=== PATIENT | male | born 1955 | race Two or more races ===

== ENCOUNTER 2017-03-07 02:17 | Inpatient (IN) | payer MEDICAID, OTHER ==
[~2017-03-07] VITALS: Ht 172.7 cm; Wt 77.6 kg
[2017-03-07 03:53] LABS: Basophils # (auto) 0 uL; Basophils % (auto) 0.5 % (0.0-2.0); Eosinophils # (auto) 0.2 uL; Eosinophils % (auto) 4.6 % (0.0-7.0); Hematocrit 39.7 % (41.0-53.0); Hemoglobin 13.4 g/dL (13.5-17.5); Lymphocytes # (auto) 1.4 uL; Lymphocytes % (auto) 28.1 % (10.0-50.0); Mean Corpuscular Hemoglobin 30.4 pg (28.0-32.0); Mean Corpuscular Hgb Conc. 33.6 g/dL (32.0-36.0); Mean Corpuscular Volume 90.5 fL (80.0-100.0); Mean Platelet Volume 7.9 fL (7.4-10.4); Monocytes # (auto) 0.4 uL; Monocytes % (auto) 8.6 % (0.0-12.0); Neutrophils % (auto) 58.2 % (37.0-80.0); Platelet Count (auto) 229 10^3/uL (140-450); Red Cell Distribution Width 13.8 % (11.6-16.0); White Blood Cell 5.1 10^3/uL (4.4-10.8)
[2017-03-07] MEDS ORDERED: MORPHINE SULFATE 4 MG/ML SYRG IV ONE (04:00)
[2017-03-07] MEDS ORDERED: ONDANSETRON HCL 4 MG/2 ML VIAL IV ONE (04:00)
[2017-03-07 04:15] LABS: Albumin 3.3 g/dL (3.4-5.0); Anion Gap 9 (5-15); Aspartate Aminotransferase 10 U/L (15-37); BUN/Creatinine Ratio 17.1; Blood Urea Nitrogen 40 mg/dL (7-18); Calcium 7.9 mg/dL (8.5-10.1); Carbon Dioxide 24 mmol/L (21-32); Chloride 110 mmol/L (98-107); GFR African American 37 mL/min; GFR Non-African American 30 mL/min; Glucose 95 mg/dL (74-106); Potassium 3.8 mmol/L (3.5-5.1); Sodium 143 mmol/L (136-145)
[2017-03-07 04:19] LABS: Alkaline Phosphatase 64 U/L (45-117); Bilirubin, Total 0.5 mg/dL (0.2-1.0); Total Protein 6.4 g/dL (6.4-8.2)
[2017-03-07 06:09] LABS: Temperature: 22.5 C (20.0-25.0)
[2017-03-07] MEDS ORDERED: ACETAMINOPHEN 325 MG TAB PO PRN (06:30)
[2017-03-07] MEDS ORDERED: TEMAZEPAM 15 MG CAP PO PRN (06:30)
[2017-03-07 07:03] LABS: Urine Bilirubin Negative (Negative); Urine Blood Negative /uL (Negative); Urine Color Yellow (Yellow); Urine Glucose Normal (Normal); Urine Hyaline Cast FEW /lpf (0 - 2); Urine Ketone Negative (Negative); Urine Mucus FEW (None Seen); Urine Nitrite Negative (Negative); Urine RBC 1 /hpf (0 - 3); Urine Squamous Epithelial Cell FEW /hpf (<5); Urine Urobilinogen Normal (Negative)
[2017-03-07 07:17] LABS: Partial Thromboplastin Time 38.8 sec (22.64-33.71)
[2017-03-07 07:18] LABS: INR 1.86 (0.9-1.15); Prothrombin Time 20.4 sec (9.37-12.3)
[2017-03-07 09:00] VITALS: BP 126/84
[2017-03-07] MEDS: ONDANSETRON HCL 4 MG/2 ML VIAL IV PRN (09:16)
[2017-03-07] MEDS: ENOXAPARIN SOD 40 MG/0.4 ML SYRINGE SC SCH (09:16)
[2017-03-07] MEDS: ASPirin 81 mg TAB PO SCH (09:17)
[2017-03-07] MEDS: HYDROcodone-ACET 5/325MG TAB PO PRN ×2 (09:17→14:27)
[2017-03-07] MEDS ORDERED: PATIENTS OWN MEDICATION (simvastatin 20 MG) PO SCH ×2 (10:00)
[2017-03-07] MEDS ORDERED: FAMOTIDINE 20 MG TAB PO SCH (10:00)
[2017-03-07] MEDS ORDERED: LOSARTAN POTASSIUM 25 MG TAB PO SCH (10:00)
[2017-03-07 10:38] VITALS: BP 125/81
[2017-03-07] MEDS ORDERED: PERCOT PO (10:57)
[2017-03-07] MEDS ORDERED: ATO40T PO (10:57)
[2017-03-07] MEDS ORDERED: WARF7.5T20 PO (10:57)
[2017-03-07] MEDS ORDERED: [UNRECOGNIZED DRUG - CODE] PO (10:57)
[2017-03-07] MEDS ORDERED: ENAL-3 PO (10:57)
[2017-03-07] MEDS ORDERED: AMLO10TA2 PO (10:57)
[2017-03-07] MEDS ORDERED: DOCU-137 PO (10:57)
[2017-03-07] MEDS ORDERED: MORP15TA PO (10:57)
[2017-03-07] MEDS ORDERED: HCTZ25T PO (10:57)
[2017-03-07] MEDS ORDERED: ONDA4TAB5 PO (10:57)
[2017-03-07 13:00] VITALS: BP 130/82
[2017-03-07 17:00] VITALS: BP 131/83
[2017-03-07] MEDS ORDERED: WARFARIN SODIUM 2 MG TAB PO ONE (17:00)
[2017-03-07] MEDS: HYDROcodone-ACET 10/325MG TAB PO PRN (18:12)
[2017-03-07] MEDS: ATORVASTATIN 20 MG TAB PO SCH (21:32)
[2017-03-07 22:00] VITALS: BP 124/79
[2017-03-08] MEDS: HYDROcodone-ACET 10/325MG TAB PO PRN ×4 (03:14→21:04)
[2017-03-08] MEDS: ONDANSETRON HCL 4 MG/2 ML VIAL IV PRN (03:20)
[2017-03-08 05:00] VITALS: BP 127/88
[2017-03-08 06:45] LABS: Basophils # (auto) 0 uL; Basophils % (auto) 0.5 % (0.0-2.0); Eosinophils # (auto) 0.3 uL; Eosinophils % (auto) 3.4 % (0.0-7.0); Hematocrit 44.8 % (41.0-53.0); Hemoglobin 14.8 g/dL (13.5-17.5); Lymphocytes # (auto) 2.7 uL; Lymphocytes % (auto) 34.2 % (10.0-50.0); Mean Corpuscular Hemoglobin 30.2 pg (28.0-32.0); Mean Corpuscular Volume 91.5 fL (80.0-100.0); Mean Platelet Volume 8.4 fL (7.4-10.4); Monocytes # (auto) 0.6 uL; Monocytes % (auto) 7.5 % (0.0-12.0); Neutrophils # (auto) 4.3 uL; Neutrophils % (auto) 54.4 % (37.0-80.0); Platelet Count (auto) 235 10^3/uL (140-450); White Blood Cell 7.9 10^3/uL (4.4-10.8)
[2017-03-08 06:58] LABS: Partial Thromboplastin Time 34.5 sec (22.64-33.71)
[2017-03-08 07:08] LABS: INR 1.35 (0.9-1.15); Prothrombin Time 14.8 sec (9.37-12.3)
[2017-03-08 07:12] LABS: Albumin 3.5 g/dL (3.4-5.0); BUN/Creatinine Ratio 15.5; Calcium 8.7 mg/dL (8.5-10.1)
[2017-03-08 07:24] LABS: Bilirubin, Total 0.6 mg/dL (0.2-1.0); Total Protein 7.4 g/dL (6.4-8.2)
[2017-03-08 07:30] VITALS: BP 140/92
[2017-03-08] MEDS: PANTOPRAZOLE 40 MG TAB PO SCH (08:47)
[2017-03-08] MEDS: ASPirin 81 mg TAB PO SCH (08:47)
[2017-03-08] MEDS: ENOXAPARIN SOD 40 MG/0.4 ML SYRINGE SC SCH (08:47)
[2017-03-08 08:55] VITALS: BP 140/92
[2017-03-08] MEDS ORDERED: ENOXAPARIN SOD 30 MG/0.3 ML SYRINGE SC ONE (11:30)
[2017-03-08 13:00] VITALS: BP 127/83
[2017-03-08 17:00] VITALS: BP 134/91
[2017-03-08] MEDS ORDERED: WARFARIN SODIUM 2.5 MG TAB PO ONE (17:00)
[2017-03-08] MEDS: ATORVASTATIN 20 MG TAB PO SCH (21:56)
[2017-03-08 22:00] VITALS: BP 137/94
[2017-03-08] MEDS: NITROGLYCERIN 0.4 MG SL TAB SL PRN ×2 (22:10→22:15)
[2017-03-09] MEDS: MORPHINE SULF INJ 2 MG/ML SYRINGE 1ML IV PRN ×2 (00:18→03:31)
[2017-03-09 05:00] VITALS: BP 110/69
[2017-03-09 05:49] LABS: Basophils # (auto) 0 uL; Basophils % (auto) 0.6 % (0.0-2.0); Eosinophils # (auto) 0.3 uL; Eosinophils % (auto) 5.2 % (0.0-7.0); Hematocrit 41.8 % (41.0-53.0); Hemoglobin 13.9 g/dL (13.5-17.5); Lymphocytes # (auto) 1.4 uL; Lymphocytes % (auto) 27.9 % (10.0-50.0); Mean Corpuscular Hemoglobin 30.1 pg (28.0-32.0); Mean Corpuscular Hgb Conc. 33.2 g/dL (32.0-36.0); Mean Corpuscular Volume 90.7 fL (80.0-100.0); Mean Platelet Volume 8.1 fL (7.4-10.4); Monocytes # (auto) 0.5 uL; Monocytes % (auto) 10.4 % (0.0-12.0); Neutrophils # (auto) 2.8 uL; Neutrophils % (auto) 55.9 % (37.0-80.0); Platelet Count (auto) 221 10^3/uL (140-450); Red Cell Distribution Width 13.9 % (11.6-16.0); White Blood Cell 5.1 10^3/uL (4.4-10.8)
[2017-03-09 05:51] LABS: Partial Thromboplastin Time 35.5 sec (22.64-33.71)
[2017-03-09 05:54] LABS: Albumin 3.2 g/dL (3.4-5.0); BUN/Creatinine Ratio 13.6; Calcium 8.7 mg/dL (8.5-10.1); Potassium 4.5 mmol/L (3.5-5.1)
[2017-03-09 05:56] LABS: Bilirubin, Total 0.4 mg/dL (0.2-1.0); Total Protein 6.8 g/dL (6.4-8.2)
[2017-03-09 05:57] LABS: INR 1.63 (0.9-1.15); Prothrombin Time 17.9 sec (9.37-12.3)
[2017-03-09] MEDS ORDERED: MORPHINE SULF 15mg ER tab PO SCH (06:15)
[2017-03-09] MEDS ORDERED: NALOXONE HCL 0.4 MG/ML VIAL ONE (07:45)
[2017-03-09] MEDS ORDERED: fentaNYL CITRATE 100 MCG/2 ML VL ONE (07:45)
[2017-03-09] MEDS ORDERED: NALOXONE HCL 0.4 MG/ML VIAL IV ONE (07:45)
[2017-03-09] MEDS ORDERED: MIDAZOLAM HCL 5 MG/ML-1ML VIAL IV ONE (07:45)
[2017-03-09] MEDS ORDERED: BENZOCAINE (DENTAL) 20 % SPRAY 60ML MT ONE ×2 (07:45→08:15)
[2017-03-09] MEDS ORDERED: fentaNYL CITRATE 100 MCG/2 ML VL IV ONE (07:45)
[2017-03-09] MEDS ORDERED: FLUMAZENIL 0.1 MG/ML INJ 10ML MDV IV ONE ×2 (07:45)
[2017-03-09] MEDS ORDERED: LIDOCAINE VISCOUS 2% 15ML UD ONE (07:45)
[2017-03-09] MEDS ORDERED: LIDOCAINE VISCOUS 2% 15ML UD MT PRN (07:45)
[2017-03-09] MEDS ORDERED: MIDAZOLAM HCL 1MG/1ML-2 ML VIAL ONE (07:46)
[2017-03-09 08:00] VITALS: BP 145/91
[2017-03-09 09:00] VITALS: BP 116/94
[2017-03-09] MEDS ORDERED: DOCUSATE SOD 100 MG CAP PO ONE (10:15)
[2017-03-09] MEDS: ASPirin 81 mg TAB PO SCH (10:30)
[2017-03-09] MEDS: PANTOPRAZOLE 40 MG TAB PO SCH (10:31)
[2017-03-09 11:31] VITALS: BP 116/94
[2017-03-09] MEDS ORDERED: WARFARIN SODIUM 2.5 MG TAB PO ONE (17:00)
[2017-03-10 02:06] LABS: Prostate Specific Antigen 5.5 ng/mL (0.0-4.0)
[2017-03-10 03:06] LABS: PSA Free 1.52 ng/mL
== END 2017-03-09 12:25 | disposition home or self-care (01) | DRG 203 ==
LOC: ER 02:22 → EDBD 02:23 → TELE 02:23 → TELE-EAST 08:39
PROVIDERS: ADMIT Nurse Practitioner; ATTEND Internal Medicine
PROC: B24BZZ4 Ultrasonography of Heart with Aorta, Transesophageal (ICD-10-PCS; principal; 2017-03-09)
DX: R07.89 Other chest pain (principal); D68.9 Coagulation defect, unspecified; D68.69 Other thrombophilia; E44.0 Moderate protein-calorie malnutrition; N17.9 Acute kidney failure, unspecified; I48.92 Unspecified atrial flutter; I13.0 Hypertensive heart and chronic kidney disease with heart failure and stage 1 through stage 4 chronic kidney disease, or unspecified chronic kidney disease; I50.40 Unspecified combined systolic (congestive) and diastolic (congestive) heart failure; N18.3 Chronic kidney disease, stage 3 (moderate); E83.51 Hypocalcemia; I48.2 Chronic atrial fibrillation; E78.5 Hyperlipidemia, unspecified; Z68.26 Body mass index [BMI] 26.0-26.9, adult; F12.90 Cannabis use, unspecified, uncomplicated; G89.29 Other chronic pain; Z71.9 Counseling, unspecified; Z90.49 Acquired absence of other specified parts of digestive tract; R00.1 Bradycardia, unspecified; I05.0 Rheumatic mitral stenosis
CPT/HCPCS: 36415; 71020; 76775; 80053; 80307; 81001; 82306; 82570; 83735; 83880; 83970; 84100; 84154; 84156; 84300; 84484; 85025; 85379; 85610; 85730; 87081; 93005; 93306; 93312; 96374; 96375; J2250; J2405

== ENCOUNTER 2017-03-13 12:10 | Emergency (ER) | payer MEDICAID ==
[~2017-03-13] VITALS: Ht 172.7 cm; Wt 77.1 kg
[~2017-03-13 12:10] MED LIST: AMLO10TA2 PO; ATO40T PO; DOCU-137 PO; ENAL-3 PO; HCTZ25T PO; MORP15TA PO; ONDA4TAB5 PO; PERCOT PO; WARF7.5T20 PO; [UNRECOGNIZED DRUG - CODE] PO
[2017-03-13] MEDS ORDERED: SODIUM CHLORIDE 0.9% 1,000 ML IV ONE (12:53)
[2017-03-13 13:00] LABS: Basophils # (auto) 0 uL; Basophils % (auto) 0.3 % (0.0-2.0); Eosinophils # (auto) 0.2 uL; Eosinophils % (auto) 2.7 % (0.0-7.0); Hematocrit 45.7 % (41.0-53.0); Hemoglobin 15.6 g/dL (13.5-17.5); Lymphocytes # (auto) 1.5 uL; Lymphocytes % (auto) 20.2 % (10.0-50.0); Mean Corpuscular Hemoglobin 30.6 pg (28.0-32.0); Mean Corpuscular Hgb Conc. 34.1 g/dL (32.0-36.0); Mean Corpuscular Volume 89.7 fL (80.0-100.0); Mean Platelet Volume 7.9 fL (7.4-10.4); Monocytes # (auto) 0.3 uL; Monocytes % (auto) 4.5 % (0.0-12.0); Neutrophils # (auto) 5.5 uL; Neutrophils % (auto) 72.3 % (37.0-80.0); Platelet Count (auto) 284 10^3/uL (140-450); Red Cell Distribution Width 14.4 % (11.6-16.0); White Blood Cell 7.7 10^3/uL (4.4-10.8)
[2017-03-13] MEDS ORDERED: NALBUPHINE HCL 10 MG/1ml INJECTION IV ONE (13:00)
[2017-03-13] MEDS ORDERED: ONDANSETRON HCL 4 MG/2 ML VIAL IV ONE (13:00)
[2017-03-13 13:28] LABS: Albumin 3.6 g/dL (3.4-5.0); Alkaline Phosphatase 76 U/L (45-117); Anion Gap 8 (5-15); Aspartate Aminotransferase 21 U/L (15-37); BUN/Creatinine Ratio 11.8; Bilirubin, Total 0.4 mg/dL (0.2-1.0); Blood Urea Nitrogen 23 mg/dL (7-18); Calcium 8.8 mg/dL (8.5-10.1); Carbon Dioxide 24 mmol/L (21-32); Chloride 107 mmol/L (98-107); GFR African American 46 mL/min; GFR Non-African American 38 mL/min; Glucose 102 mg/dL (74-106); Potassium 4.5 mmol/L (3.5-5.1); Sodium 139 mmol/L (136-145); Total Protein 7.8 g/dL (6.4-8.2)
[2017-03-13 13:36] LABS: Urine Bilirubin Negative (Negative); Urine Blood Negative /uL (Negative); Urine Color Yellow (Yellow); Urine Glucose Normal (Normal); Urine Ketone Negative (Negative); Urine Nitrite Negative (Negative); Urine RBC <1 /hpf (0 - 3); Urine Squamous Epithelial Cell FEW /hpf (<5); Urine Urobilinogen Normal (Negative); Urine pH 6.5 (5.0-8.0)
[2017-03-13] MEDS ORDERED: LORazepam 2MG/ML-1ML VIAL IV ONE (14:15)
[2017-03-13] MEDS ORDERED: NITROFURANTOIN (MONO) 100 mg CAP PO ONE (14:30)
[2017-03-13 16:05] VITALS: BP 145/92
== END 2017-03-13 16:43 | disposition home or self-care (01) ==
LOC: ER 12:10 → EDBD 12:10 → ER 16:43
DX: R07.89 Other chest pain (principal); N39.0 Urinary tract infection, site not specified; I48.91 Unspecified atrial fibrillation; I10 Essential (primary) hypertension; E78.5 Hyperlipidemia, unspecified; Z91.013 Allergy to seafood; Z79.899 Other long term (current) drug therapy; Z79.01 Long term (current) use of anticoagulants
CPT/HCPCS: 36415; 71010; 80053; 81001; 84484; 85025; 93005; 96361; 96374; 96375; 99285; J2060; J2300; J2405; J7030